=== PATIENT | male | born 1990 | race American Indian/Alaskan Native ===

== ENCOUNTER 2016-08-04 16:37 | Emergency (ER) | payer SELFPAY ==
--- NOTE | 2016-08-04 17:04 | Emergency Department Report ---
Chief Complaint: Abdominal Pain Stated Complaint: ABD PAIN/NO BM IN 1WK/NIGHT SWEATS Time Seen by Provider: 08/04/16 17:00 - HPI History of Present Illness: Patient reports no bowel movement, night sweats and abdominal pain that started one week ago. Also, requesting a referral for HIV treatment - ROS Review of Systems: all other systems are unremarkable except for documentation in HPI - Exam Vital Signs: Vital Signs 08/04/16 16:54 Temperature 98.4 F Pulse Rate 80 Respiratory 18 Rate Blood Pressure 126/78 O2 Sat by Pulse 96 Oximetry Physical Exam: Gen: slender, NAD Abd: soft, flat, non-distended, bowel sounds present, tenderness to palpation suprapubic, RLQ and LLQ pain, no rebound, guarding or rigid MSE screening note: Focused history and physical exam performed. Due to findings the following was ordered: laboratory studies ordered ED Disposition for MSE Condition: Stable
[2016-08-04 17:21] LABS: Mean Corpuscular HGB Conc 31 % (32-34); Mean Corpuscular Volume 71 fl (84-94); Platelet Count 184 K/mm3 (140-440); Red Blood Count 6.91 M/mm3 (3.65-5.03); Red Cell Distribution Width 18.6 % (13.2-15.2)
[2016-08-04 17:38] LABS: Bilirubin,Urine NEG (Negative); Blood,Urine MOD (Negative); Ketones,Urine NEG (Negative); Leukocyte Esterase,Urine NEG (Negative); Mucus,Urine 2+ /HPF; Nitrite,Urine NEG (Negative); Urobilinogen,Urine < 2.0 mg/dL (<2.0)
[2016-08-04 17:40] LABS: Hematocrit 48.7 % (35.5-45.6); Hemoglobin 15.1 gm/dl (11.8-15.2); Mean Corpuscular Hemoglobin 22 pg (28-32)
[2016-08-04 17:43] LABS: Alanine Aminotransferase 12 units/L (7-56); Albumin 4.6 g/dL (3.9-5); Albumin/Globulin Ratio 1.1 %; Alkaline Phosphatase 65 units/L (35-129); Anion Gap 20 mmol/L; Bilirubin,Total 0.5 mg/dL (0.1-1.2); Blood Urea Nitrogen 12 mg/dL (9-20); Calcium 9.6 mg/dL (8.4-10.2); Carbon Dioxide 23 mmol/L (22-30); Chloride 97.2 mmol/L (98-107); Glucose 94 mg/dL (75-100); Lipase 20 units/L (13-60); Potassium 4.5 mmol/L (3.6-5.0); Sodium 136 mmol/L (137-145); Total Protein 8.9 g/dL (6.3-8.2)
[2016-08-04 18:36] LABS: Blastocytes % (Manual) 0 %; Eosinophils % (Manual) 0 % (0.0-4.3)
[2016-08-04 18:38] LABS: Anisocytosis 1+; Microcytosis 1+; Ovalocytes Few; Poikilocytosis Few
[2016-08-04 18:39] LABS: Diff Status Complete; Platelet Estimate Consistent w Auto
[2016-08-05 00:10] VITALS: BP 135/85
[2016-08-05] MEDS ORDERED: NACL 0.9% 1000 ML 1,000 ML IV ONE (06:21)
[2016-08-05] MEDS ORDERED: ZOSYN/NS 3.375GM/50ML 50 ML IV ONE (06:21)
--- NOTE | 2016-08-05 06:21 | Emergency Department Report ---
ED Abdominal Pain HPI - General Chief Complaint: Abdominal Pain Stated Complaint: ABD PAIN/NO BM IN 1WK/NIGHT SWEATS Time Seen by Provider: 08/05/16 06:11 Source: patient Mode of arrival: Ambulatory Limitations: No Limitations - History of Present Illness Initial Comments: The patient states that he found that he was HIV positive several months ago. He has not begun antiretroviral therapy. He presumed that he had hemorrhoids but states preparation H is not working. He states he feels like he is " swollen inside" his rectum. He denies any sort of rectal discharge. He told the triage nurse he's been having some night sweats and decreased bowel movements. He denied rectal bleeding. He has not been vomiting. He is not complaining of abdominal pain. He is seeking a referral for HIV treatment. MD Complaint: other (rectal pain) -: week(s) Quality: other ("feels swollen inside") Consistency: intermittent Improves With: nothing Worsens With: nothing Context: other (HIV positive) Associated Symptoms: other (sweating at night) - Related Data Previous Rx's Medication Instructions Recorded Last Taken Type Cephalexin [Keflex] 500 mg PO Q12HR #14 cap 06/08/16 Unknown Rx Allergies Allergy/AdvReac Type Severity Reaction Status Date / Time No Known Allergies Allergy Verified 06/08/16 01:18 ED Review of Systems ROS: Stated complaint: ABD PAIN/NO BM IN 1WK/NIGHT SWEATS Other details as noted in HPI Constitutional: denies: chills, fever Eyes: denies: eye pain, eye discharge, vision change ENT: denies: ear pain, throat pain Respiratory: denies: cough, shortness of breath, wheezing Cardiovascular: denies: chest pain, palpitations Endocrine: no symptoms reported Gastrointestinal: as per HPI. denies: abdominal pain, nausea, diarrhea Genitourinary: denies: urgency, dysuria Musculoskeletal: denies: back pain, joint swelling, arthralgia Skin: denies: rash, lesions Neurological: denies: headache, weakness, paresthesias Psychiatric: denies: anxiety, depression Hematological/Lymphatic: denies: easy bleeding, easy bruising ED Past Medical Hx - Past Medical History Previous Medical History?: Yes Hx HIV: Yes - Surgical History Past Surgical History?: No - Social History Smoking Status: Current Every Day Smoker Substance Use Type: Alcohol, Marijuana - Medications Home Medications: Home Medications Medication Instructions Recorded Confirmed Last Taken Type Cephalexin [Keflex] 500 mg PO Q12HR #14 cap 06/08/16 Unknown Rx ED Physical Exam - General Limitations: No Limitations General appearance: alert, in no apparent distress - Head Head exam: Present: atraumatic, normocephalic - Eye Eye exam: Present: normal appearance, PERRL, EOMI. Absent: scleral icterus - ENT ENT exam: Present: mucous membranes moist - Neck Neck exam: Present: normal inspection - Respiratory Respiratory exam: Present: normal lung sounds bilaterally. Absent: respiratory distress - Cardiovascular Cardiovascular Exam: Present: regular rate, normal rhythm. Absent: systolic murmur, diastolic murmur, rubs, gallop - GI/Abdominal GI/Abdominal exam: Present: soft, normal bowel sounds. Absent: distended, tenderness, guarding, rebound, rigid - Rectal Rectal exam: Present: other (multiple moderate sized condyloma noted digital exam is deferred no discharge) - Extremities Exam Extremities exam: Present: normal inspection - Back Exam Back exam: Present: normal inspection - Neurological Exam Neurological exam: Present: alert, oriented X3, CN II-XII intact. Absent: motor sensory deficit - Psychiatric Psychiatric exam: Present: normal affect, normal mood - Skin Skin exam: Present: warm, dry, intact, normal color. Absent: rash ED Course Vital Signs 08/04/16 08/05/16 08/05/16 16:54 00:09 06:36 Temperature 98.4 F 98.4 F Pulse Rate 80 66 Respiratory 18 18 18 Rate Blood Pressure 126/78 135/85 O2 Sat by Pulse 96 98 99 Oximetry ED Medical Decision Making - Lab Data Result diagrams: 08/04/16 17:13 08/04/16 17:13 Laboratory Results - last 24 hr 08/04/16 08/04/16 08/04/16 17:10 17:13 17:13 WBC 11.0 RBC 6.91 H Hgb 15.1 Hct 48.7 H MCV 71 L MCH 22 L MCHC 31 L RDW 18.6 H Plt Count 184 Lymph % (Auto) [place] Lymph # [place] Add Manual Diff Complete Total Counted 100 Seg Neutrophils % [place] Seg Neuts % (Manual) 25 L Band Neutrophils % 2.0 Lymphocytes % (Manual) 56 H Reactive Lymphs % (Man) 8.0 Monocytes % (Manual) 8.0 H Eosinophils % (Manual) 0 Basophils % (Manual) 1.0 Metamyelocytes % 0 Myelocytes % 0 Promyelocytes % 0 Blast Cells % 0 Nucleated RBC % Not Reportable Seg Neutrophils # Man 2.8 Band Neutrophils # 0.2 Lymphocytes # (Manual) 6.2 H Abs React Lymphs (Man) 0.9 Monocytes # (Manual) 0.9 H Eosinophils # (Manual) 0.0 Basophils # (Manual) 0.1 Metamyelocytes # 0.0 Myelocytes # 0.0 Promyelocytes # 0.0 Blast Cells # 0.0 WBC Morphology Not Reportable Hypersegmented Neuts Not Reportable Hyposegmented Neuts Not Reportable Hypogranular Neuts Not Reportable Smudge Cells Not Reportable Toxic Granulation Not Reportable Toxic Vacuolation Not Reportable Dohle Bodies Not Reportable Pelger-Huet Anomaly Not Reportable Amaya Rods Not Reportable Platelet Estimate Consistent w auto Clumped Platelets Not Reportable Plt Clumps, EDTA Not Reportable Large Platelets Not Reportable Giant Platelets Not Reportable Platelet Satelliting Not Reportable Plt Morphology Comment Not Reportable RBC Morphology Not Reportable Dimorphic RBCs Not Reportable Polychromasia Not Reportable Hypochromasia Not Reportable Poikilocytosis Few Anisocytosis 1+ Microcytosis 1+ Macrocytosis Not Reportable Spherocytes Not Reportable Pappenheimer Bodies Not Reportable Sickle Cells Not Reportable Target Cells Not Reportable Tear Drop Cells Not Reportable Ovalocytes Few Helmet Cells Not Reportable Truong-Clancy Bodies Not Reportable Forks Rings Not Reportable Manan Cells Not Reportable Bite Cells Not Reportable Crenated Cell Not Reportable Elliptocytes Not Reportable Acanthocytes (Spur) Not Reportable Rouleaux Not Reportable Hemoglobin C Crystals Not Reportable Schistocytes Not Reportable Malaria parasites Not Reportable Ramos Bodies Not Reportable Hem Pathologist Commnt No Sodium 136 L Potassium 4.5 Chloride 97.2 L Carbon Dioxide 23 Anion Gap 20 BUN 12 Creatinine 0.8 Estimated GFR > 60 BUN/Creatinine Ratio 15.00 Glucose 94 Calcium 9.6 Total Bilirubin 0.5 AST 22 ALT 12 Alkaline Phosphatase 65 Total Protein 8.9 H Albumin 4.6 Albumin/Globulin Ratio 1.1 Lipase 20 Urine Color Yellow Urine Turbidity Clear Urine pH 5.0 Ur Specific [place] 1.027 Urine Protein 100 mg/dl Urine Glucose (UA) Neg Urine Ketones Neg Urine Blood Mod Urine Nitrite Neg Urine Bilirubin Neg Urine Urobilinogen < 2.0 Ur Leukocyte Esterase Neg Urine WBC (Auto) 1.0 Urine RBC (Auto) 4.0 Urine Mucus 2+ Laboratory Results - last 24 hr 08/04/16 08/04/16 08/04/16 17:10 17:13 17:13 WBC 11.0 RBC 6.91 H Hgb 15.1 Hct 48.7 H MCV 71 L MCH 22 L MCHC 31 L RDW 18.6 H Plt Count 184 Lymph % (Auto) [place] Lymph # [place] Add Manual Diff Complete Total Counted 100 Seg Neutrophils % [place] Seg Neuts % (Manual) 25 L Band Neutrophils % 2.0 Lymphocytes % (Manual) 56 H Reactive Lymphs % (Man) 8.0 Monocytes % (Manual) 8.0 H Eosinophils % (Manual) 0 Basophils % (Manual) 1.0 Metamyelocytes % 0 Myelocytes % 0 Promyelocytes % 0 Blast Cells % 0 Nucleated RBC % Not Reportable Seg Neutrophils # Man 2.8 Band Neutrophils # 0.2 Lymphocytes # (Manual) 6.2 H Abs React Lymphs (Man) 0.9 Monocytes # (Manual) 0.9 H Eosinophils # (Manual) 0.0 Basophils # (Manual) 0.1 Metamyelocytes # 0.0 Myelocytes # 0.0 Promyelocytes # 0.0 Blast Cells # 0.0 WBC Morphology Not Reportable Hypersegmented Neuts Not Reportable Hyposegmented Neuts Not Reportable Hypogranular Neuts Not Reportable Smudge Cells Not Reportable Toxic Granulation Not Reportable Toxic Vacuolation Not Reportable Dohle Bodies Not Reportable Pelger-Huet Anomaly Not Reportable Amaya Rods Not Reportable Platelet Estimate Consistent w auto Clumped Platelets Not Reportable Plt Clumps, EDTA Not Reportable Large Platelets Not Reportable Giant Platelets Not Reportable Platelet Satelliting Not Reportable Plt Morphology Comment Not Reportable RBC Morphology Not Reportable Dimorphic RBCs Not Reportable Polychromasia Not Reportable Hypochromasia Not Reportable Poikilocytosis Few Anisocytosis 1+ Microcytosis 1+ Macrocytosis Not Reportable Spherocytes Not Reportable Pappenheimer Bodies Not Reportable Sickle Cells Not Reportable Target Cells Not Reportable Tear Drop Cells Not Reportable Ovalocytes Few Helmet Cells Not Reportable Truong-Clancy Bodies Not Reportable Forks Rings Not Reportable Manan Cells Not Reportable Bite Cells Not Reportable Crenated Cell Not Reportable Elliptocytes Not Reportable Acanthocytes (Spur) Not Reportable Rouleaux Not Reportable Hemoglobin C Crystals Not Reportable Schistocytes Not Reportable Malaria parasites Not Reportable Ramos Bodies Not Reportable Hem Pathologist Commnt No Sodium 136 L Potassium 4.5 Chloride 97.2 L Carbon Dioxide 23 Anion Gap 20 BUN 12 Creatinine 0.8 Estimated GFR > 60 BUN/Creatinine Ratio 15.00 Glucose 94 Calcium 9.6 Total Bilirubin 0.5 AST 22 ALT 12 Alkaline Phosphatase 65 Total Protein 8.9 H Albumin 4.6 Albumin/Globulin Ratio 1.1 Lipase 20 Urine Color Yellow Urine Turbidity Clear Urine pH 5.0 Ur Specific [place] 1.027 Urine Protein 100 mg/dl Urine Glucose (UA) Neg Urine Ketones Neg Urine Blood Mod Urine Nitrite Neg Urine Bilirubin Neg Urine Urobilinogen < 2.0 Ur Leukocyte Esterase Neg Urine WBC (Auto) 1.0 Urine RBC (Auto) 4.0 Urine Mucus 2+ - Radiology Data Radiology results: report reviewed (no significant CT abnormality) Critical care attestation.: If time is entered above; I have spent that time in minutes in the direct care of this critically ill patient, excluding procedure time. ED Disposition Clinical Impression: Condylomata acuminata in male, HIV positive Disposition: DISCHARGED TO HOME OR SELFCARE Is pt being admited?: No Does the pt Need Aspirin: No Condition: Stable Instructions: Human Immunodeficiency Virus Infection (ED), Genital Warts (ED) Additional Instructions: Return any acute change or problem. I've referred due to an infectious disease specialist for treatment and the [facility] Department should you need further assistance. Referrals: PARTH SHARPE MD [Primary Care Provider] - 3-5 Days LURDES LYONS MD [Staff Physician] - 2-3 Days [facility] [Outside] - 3-5 Days Time of Disposition: 09:41
[2016-08-05] MEDS ORDERED: NACL ONE (07:16)
[2016-08-05] MEDS ORDERED: NORCO 5/325 ONE (07:18)
[2016-08-05] MEDS ORDERED: NORCO 5/325 PO ONE (07:23)
--- NOTE | 2016-08-05 08:15 | Cat Scan Report ---
FINAL REPORT PROCEDURE: CT ABDOMEN PELVIS W CON TECHNIQUE: Computerized axial tomography of the abdomen and pelvis was performed after the IV injection of iodinated nonionic contrast. HISTORY: HIV Rectal pain COMPARISON: No prior studies are available for comparison. FINDINGS: Visualized lower thorax: No significant abnormality. Liver: Normal size and attenuation. Spleen: Normal size and attenuation. Gallbladder and biliary system: Normal. Pancreas: Normal. Adrenals: Normal. Kidneys: Normal. GI tract: Limited in evaluation without oral contrast no bowel obstruction or gross focal bowel abnormality.. Lymph nodes and mesentery: Bilateral groin lymph nodes largely nonpathologic. Mildly enlarged right groin lymph node 1.7 centimeters in transverse diameter. Few retroperitoneal lymph nodes. A couple mildly enlarged left para-aortic 1.2 and 1.3 centimeters. 1.1 centimeter mesenteric lymph node. No lymph node necrosis or calcification. Vasculature: Normal. Bladder: Normal. Reproductive organs: Normal. Peritoneum: No free fluid. Musculoskeletal structures: No significant abnormality. Other: None. IMPRESSION: Mild mesenteric, retroperitoneal and right groin lymphadenopathy. Otherwise unremarkable exam.
== END 2016-08-05 09:54 | disposition home or self-care (01) ==
LOC: ED 16:37
DX: A63.0 Anogenital (venereal) warts (principal); F12.10 Cannabis abuse, uncomplicated; F17.200 Nicotine dependence, unspecified, uncomplicated; Z21 Asymptomatic human immunodeficiency virus [HIV] infection status
CPT/HCPCS: 36415; 74177; 80053; 81001; 83690; 85007; 85025; 96365; 99284; J2543; J7030; Q9967

== ENCOUNTER 2016-11-10 09:46 | Emergency (ER) | payer OTHER ==
[2016-11-10 10:05] VITALS: BP 113/77
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
[2016-11-10] MEDS ORDERED: MARCAINE 0.5% INFILTRATI ONE (11:17)
[2016-11-10] MEDS ORDERED: PERCOCET 5/325 PO ONE (11:17)
[2016-11-10] MEDS ORDERED: CLEOCIN IM ONE (11:17)
[2016-11-10] MEDS ORDERED: NACL 0.9% IR ONE (11:19)
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
== END 2016-11-10 13:33 | disposition home or self-care (01) ==
LOC: ED 09:46
DX: S61.411A Laceration without foreign body of right hand, initial encounter (principal); F12.90 Cannabis use, unspecified, uncomplicated; F17.200 Nicotine dependence, unspecified, uncomplicated; Y04.2XXA Assault by strike against or bumped into by another person, initial encounter; Y93.89 Activity, other specified; Y99.8 Other external cause status; Y92.522 Railway station as the place of occurrence of the external cause
CPT/HCPCS: 96372

== ENCOUNTER 2016-11-13 18:12 | Emergency (ER) | payer OTHER ==
[2016-11-13 18:49] VITALS: BP 159/103
[2016-11-13] MEDS ORDERED: TRIPLE ANTIBIOTIC TP ONE (20:41)
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
== END 2016-11-13 21:21 | disposition home or self-care (01) ==
LOC: ED 18:12
DX: Z48.01 Encounter for change or removal of surgical wound dressing (principal)
CPT/HCPCS: 99282; A6250